=== PATIENT | male | born 1955 | race Caucasian/White ===

== ENCOUNTER 2020-08-04 11:24 | Emergency (ER) | payer OTHER | END 2020-08-04 13:00 | disposition home or self-care (01) | LOC: ER1 11:24 | DX: M25.561 Pain in right knee (principal); E11.9 Type 2 diabetes mellitus without complications; I10 Essential (primary) hypertension; I25.10 Atherosclerotic heart disease of native coronary artery without angina pectoris; F17.210 Nicotine dependence, cigarettes, uncomplicated | CPT/HCPCS: 73564; 99283 ==

== ENCOUNTER 2021-01-06 15:06 | Inpatient (IN) | payer OTHER ==
[~2021-01-06] VITALS: Ht 170.2 cm; Wt 108.4 kg
[2021-01-06 16:30] LABS: HEMOGLOBIN 15.9 gm/dl (14.0-17.5); RED BLOOD COUNT 4.91 M/UL (4.20-5.50); WHITE BLOOD COUNT 8.7 K/UL (4.5-11.0)
[2021-01-06] MEDS ORDERED: HYDROCHLOROTHIA25 MG PO (20:24)
[2021-01-06] MEDS ORDERED: LIPITOR40 MG PO (20:24)
[2021-01-06] MEDS ORDERED: AMLODIPINE BESY10 MG PO (20:25)
[2021-01-06] MEDS ORDERED: FLOMAX 0.4 MG0.4 MG PO (20:25)
[2021-01-06] MEDS ORDERED: ASPIRIN EC81 MG PO (20:25)
[2021-01-06] MEDS ORDERED: LOPRESSOR 25 MG25 MG PO (20:26)
[2021-01-06] MEDS ORDERED: ACTOS45 MG PO (20:26)
[2021-01-06] MEDS ORDERED: DIOVAN320 MG PO (20:27)
[2021-01-07 04:04] LABS: HEMOGLOBIN 15.1 gm/dl (14.0-17.5); RED BLOOD COUNT 4.53 M/UL (4.20-5.50); WHITE BLOOD COUNT 9.2 K/UL (4.5-11.0)
[2021-01-08 06:45] LABS: HEMOGLOBIN 14.1 gm/dl (14.0-17.5); RED BLOOD COUNT 4.25 M/UL (4.20-5.50); WHITE BLOOD COUNT 9.5 K/UL (4.5-11.0)
[2021-01-09] MEDS ORDERED: LOPRESSOR 25 MG25 MG PO (11:05)
[2021-01-09] MEDS ORDERED: CLOPIDOGREL75 MG PO (11:05)
== END 2021-01-09 17:50 | disposition home or self-care (01) | DRG 250 ==
LOC: ER1 15:06 → CDU 17:20 → MED SURG 4 19:40 → PROG CARE 01-07 08:35
PROVIDERS: Emergency Medicine; Internal Medicine Cardiovascular Disease; ADMIT Internal Medicine
PROC: 02703ZZ Dilation of Coronary Artery, One Artery, Percutaneous Approach (ICD-10-PCS; principal; 2021-01-06)
PROC: B24BZZ4 Ultrasonography of Heart with Aorta, Transesophageal (ICD-10-PCS; 2021-01-06)
PROC: 4A023N7 Measurement of Cardiac Sampling and Pressure, Left Heart, Percutaneous Approach (ICD-10-PCS; 2021-01-06)
DX: T82.867A Thrombosis due to cardiac prosthetic devices, implants and grafts, initial encounter (principal); I21.4 Non-ST elevation (NSTEMI) myocardial infarction; Z20.822 Contact with and (suspected) exposure to COVID-19; Y83.8 Other surgical procedures as the cause of abnormal reaction of the patient, or of later complication, without mention of misadventure at the time of the procedure; F17.210 Nicotine dependence, cigarettes, uncomplicated; E78.5 Hyperlipidemia, unspecified; I11.0 Hypertensive heart disease with heart failure; I50.9 Heart failure, unspecified; E11.9 Type 2 diabetes mellitus without complications; I45.10 Unspecified right bundle-branch block; I34.0 Nonrheumatic mitral (valve) insufficiency; I87.8 Other specified disorders of veins; E66.9 Obesity, unspecified; I25.10 Atherosclerotic heart disease of native coronary artery without angina pectoris; Z95.5 Presence of coronary angioplasty implant and graft; I25.2 Old myocardial infarction; Z79.82 Long term (current) use of aspirin; Z68.37 Body mass index [BMI] 37.0-37.9, adult; Z79.4 Long term (current) use of insulin
CPT/HCPCS: ECHO; 36415; 71045; 80048; 80053; 80076; 82550; 82553; 83735; 83874; 83880; 84484; 85025; 85027; 85347; 85610; 85730; 92920; 93005; 93306; 99152; 99153; 99285; C1725; C1769; C1887; C1894; J1644; J1940; J2250; J2270; J3010; J3475; J3480; J7030; J7040; Q9967; U0002

== ENCOUNTER 2021-01-11 18:34 | Inpatient (IN) | payer OTHER ==
[~2021-01-11] VITALS: Ht 170.2 cm; Wt 94.8 kg
[~2021-01-11 18:34] MED LIST: ACTOS45 MG PO; AMLODIPINE BESY10 MG PO; ASPIRIN EC81 MG PO; CLOPIDOGREL75 MG PO; DIOVAN320 MG PO; FLOMAX 0.4 MG0.4 MG PO; HYDROCHLOROTHIA25 MG PO; LIPITOR40 MG PO; LOPRESSOR 25 MG25 MG PO
[2021-01-11 19:03] LABS: HEMOGLOBIN 14.5 gm/dl (14.0-17.5); RED BLOOD COUNT 4.29 M/UL (4.20-5.50)
--- NOTE | 2021-01-12 15:35 | NUR ---
REPORT TO [facility] AT [id number]
[2021-01-13 03:45] LABS: HEMOGLOBIN 12.8 gm/dl (14.0-17.5); WHITE BLOOD COUNT 8.9 K/UL (4.5-11.0)
[2021-01-13 03:54] LABS: RED BLOOD COUNT 3.84 M/UL (4.20-5.50)
--- NOTE | 2021-01-13 03:55 | NUR ---
[address] GUILLEN PT AFIB WITH RVR 130-140'S, PT BOUNCING AROUND FROM 120'-150'S. ORDER GIVEN LOPRESSOR 5MG Q 5MINS X 3DOSES. HAD TO GET IV ASSESS DUE TO PT ON HEPARIN DRIP. 20 WAS PLACED IN RIGHT HAND BY JAYLEEN. ALL 3 DOSES WERE ADMINISTERED. PT HR STILL IN THE 130'S-140'S. [address] GUILLEN ORDERS FOR STAT EKG, AM LABS , MAG LEVEL, START AMIODORONE DRIP 150 BOLUS, TRANSFER TO PCU. CALLED GAVE REPORT TO [facility] ICU 2111, PT WILL BE TRANSFERRED TO PCU 6110 WHEN IT BECOMES CLEANED, TRANSFER VITALS AT 0323 147/55, R-19,98.6, P-132 PT IS A&O, PT WAS TRANSFERRED OFF FLOOR AT 0325 .
[2021-01-14] MEDS ORDERED: RANEXA500 MG PO (08:46)
[2021-01-14] MEDS ORDERED: NITROGLYCERIN0.4 MG SL (08:46)
[2021-01-14] MEDS ORDERED: PROTONIX 40 MG40 M1 PO (08:46)
[2021-01-14] MEDS ORDERED: ELIQUIS 5 MG TAB5 MG PO (08:46)
[2021-01-14] MEDS ORDERED: ISOSORBIDE MONO30 MG PO (08:46)
== END 2021-01-14 12:20 | disposition home or self-care (01) | DRG 281 ==
LOC: ER1 18:34 → CCU 20:04 → PROG CARE 20:04 → 3 EAST 20:04 → CDU 20:04 → 3 EAST 01-12 09:25 → M/S 01-12 16:03 → CCU 01-13 03:25 → PROG CARE 01-13 08:08
PROVIDERS: Internal Medicine; Physician Assistant; ADMIT Internal Medicine
PROC: B24BZZ4 Ultrasonography of Heart with Aorta, Transesophageal (ICD-10-PCS; principal; 2021-01-13)
PROC: 5A2204Z Restoration of Cardiac Rhythm, Single (ICD-10-PCS; 2021-01-13)
DX: I25.10 Atherosclerotic heart disease of native coronary artery without angina pectoris (principal); I21.4 Non-ST elevation (NSTEMI) myocardial infarction; I13.0 Hypertensive heart and chronic kidney disease with heart failure and stage 1 through stage 4 chronic kidney disease, or unspecified chronic kidney disease; I48.92 Unspecified atrial flutter; I48.0 Paroxysmal atrial fibrillation; Z20.822 Contact with and (suspected) exposure to COVID-19; I50.9 Heart failure, unspecified; F17.200 Nicotine dependence, unspecified, uncomplicated; E66.9 Obesity, unspecified; E78.5 Hyperlipidemia, unspecified; Z96.659 Presence of unspecified artificial knee joint; N18.30 Chronic kidney disease, stage 3 unspecified; E11.22 Type 2 diabetes mellitus with diabetic chronic kidney disease; I35.0 Nonrheumatic aortic (valve) stenosis; Z95.1 Presence of aortocoronary bypass graft; Z79.82 Long term (current) use of aspirin; Z79.899 Other long term (current) drug therapy; Z79.52 Long term (current) use of systemic steroids; Z68.33 Body mass index [BMI] 33.0-33.9, adult
CPT/HCPCS: 36415; 71045; 80048; 80053; 82550; 82553; 82962; 83735; 83874; 84484; 85025; 85610; 85730; 90686; 93005; 93312; 93320; 96374; 99285; G0008; G0378; J1170; J1644; J2250; J2270; J2405; J2704; J3010; U0002

== ENCOUNTER → 2021-03-03 | Outpatient (CLI) | payer OTHER ==
[~2021-03-03] MED LIST changes: +AMIODARONE HCL200 MG PO; +AMLODIPINE BESYL5 MG PO; +ASPIRIN 325MG325 MG PO; +BRILINTA90 MG PO; +CARVEDILOL3.125 MG PO; +ELIQUIS 5 MG TAB5 MG PO; +FUROSEMIDE20 MG PO; +ISOSORBIDE MONO30 MG PO; +ISOSORBIDE MONO60 MG PO; +K-TAB ER10 MEQ PO; +NITROGLYCERIN0.4 MG SL; +PROTONIX 40 MG40 M1 PO; +RANEXA500 MG PO; +ZESTRIL5 MG PO
== END ==
LOC: HEART 5 10:23
DX: I20.9 Angina pectoris, unspecified (principal); I48.91 Unspecified atrial fibrillation; R00.2 Palpitations

== ENCOUNTER 2021-03-06 16:41 | Inpatient (IN) | payer OTHER ==
[~2021-03-06] VITALS: Ht 170.2 cm; Wt 103.6 kg
[~2021-03-06 16:41] MED LIST changes: -AMIODARONE HCL200 MG PO; -AMLODIPINE BESYL5 MG PO; -ASPIRIN 325MG325 MG PO; -BRILINTA90 MG PO; -CARVEDILOL3.125 MG PO; -FUROSEMIDE20 MG PO; -ISOSORBIDE MONO60 MG PO; -K-TAB ER10 MEQ PO; -LIPITOR40 MG PO; -ZESTRIL5 MG PO
[2021-03-06 17:18] LABS: HEMOGLOBIN 12.5 gm/dl (14.0-17.5); RED BLOOD COUNT 3.68 M/UL (4.20-5.50); WHITE BLOOD COUNT 8.8 K/UL (4.5-11.0)
[2021-03-06] MEDS ORDERED: ZESTRIL5 MG PO (20:37)
[2021-03-06] MEDS ORDERED: ASPIRIN 325MG325 MG PO (20:39)
[2021-03-06] MEDS ORDERED: BRILINTA90 MG PO (20:41)
[2021-03-06] MEDS ORDERED: ISOSORBIDE MONO60 MG PO (20:42)
[2021-03-07 03:57] LABS: HEMOGLOBIN 11.6 gm/dl (14.0-17.5); RED BLOOD COUNT 3.42 M/UL (4.20-5.50); WHITE BLOOD COUNT 7.6 K/UL (4.5-11.0)
[2021-03-07] MEDS ORDERED: LIPITOR40 MG PO (20:24)
[2021-03-07] MEDS ORDERED: CARVEDILOL3.125 MG PO (20:39)
[2021-03-08 03:08] LABS: HEMOGLOBIN 11.5 gm/dl (14.0-17.5); RED BLOOD COUNT 3.46 M/UL (4.20-5.50); WHITE BLOOD COUNT 6.5 K/UL (4.5-11.0)
--- NOTE | 2021-03-08 09:58 | NUR ---
03/08/21 0715 PATIENT DENIES CHEST PAIN UPON ASSESSMENT.
[2021-03-10 03:20] LABS: HEMOGLOBIN 12.4 gm/dl (14.0-17.5); RED BLOOD COUNT 3.69 M/UL (4.20-5.50); WHITE BLOOD COUNT 6.4 K/UL (4.5-11.0)
--- NOTE | 2021-03-10 14:00 | NUR ---
NO CHANGE FROM PREVIOUS ASSESSMENT, WILL CONTINUE TO MONITOR
[2021-03-11] MEDS ORDERED: AMIODARONE HCL200 MG PO (08:58)
[2021-03-11] MEDS ORDERED: AMLODIPINE BESYL5 MG PO (08:58)
[2021-03-11] MEDS ORDERED: RANEXA500 MG PO (08:58)
[2021-03-11] MEDS ORDERED: FUROSEMIDE20 MG PO (08:58)
[2021-03-11] MEDS ORDERED: K-TAB ER10 MEQ PO (09:00)
== END 2021-03-11 11:45 | disposition home or self-care (01) | DRG 280 ==
LOC: ER1 16:41 → PROG CARE 18:44 → CDU 18:44 → PROG CARE 20:34
PROVIDERS: Emergency Medicine; Internal Medicine; ADMIT Internal Medicine Infectious Disease
DX: I13.0 Hypertensive heart and chronic kidney disease with heart failure and stage 1 through stage 4 chronic kidney disease, or unspecified chronic kidney disease (principal); I21.A1 Myocardial infarction type 2; I50.43 Acute on chronic combined systolic (congestive) and diastolic (congestive) heart failure; I47.1 Supraventricular tachycardia; E78.5 Hyperlipidemia, unspecified; I25.10 Atherosclerotic heart disease of native coronary artery without angina pectoris; Z20.822 Contact with and (suspected) exposure to COVID-19; N18.30 Chronic kidney disease, stage 3 unspecified; R00.1 Bradycardia, unspecified; E11.22 Type 2 diabetes mellitus with diabetic chronic kidney disease; N40.0 Benign prostatic hyperplasia without lower urinary tract symptoms; Z96.659 Presence of unspecified artificial knee joint; T45.515A Adverse effect of anticoagulants, initial encounter; F17.210 Nicotine dependence, cigarettes, uncomplicated; Z95.1 Presence of aortocoronary bypass graft; Z79.82 Long term (current) use of aspirin; Z79.899 Other long term (current) drug therapy; Z82.49 Family history of ischemic heart disease and other diseases of the circulatory system; Z83.3 Family history of diabetes mellitus; Z88.0 Allergy status to penicillin; Z88.5 Allergy status to narcotic agent
CPT/HCPCS: 36415; 71045; 80048; 80053; 82550; 82553; 82962; 83036; 83735; 83874; 83880; 84443; 84484; 85025; 85027; 93005; 93270; 93308; 94664; 94760; 96374; 99285; J1940; P9047; U0002